=== PATIENT | female | born 1990 | race Hispanic/Latino ===

== ENCOUNTER 2018-06-06 10:08 | Emergency (ER) | payer BC ==
[~2018-06-06] VITALS: Ht 162.6 cm; Wt 79.4 kg
[2018-06-06] MEDS ORDERED: CYCLOBENZAPRINE HCL 10 MG TAB PO ONE (11:00)
[2018-06-06] MEDS ORDERED: KETOROLAC TROMETHAMINE 60 MG/2 ML VIAL IM ONE (11:00)
[2018-06-06] MEDS ORDERED: HYDROCODONE/APAP 10MG-325MG TAB PO ONE (11:00)
[2018-06-06 11:31] LABS: PREGNANCY TEST, URINE NEGATIVE (NEGATIVE)
[2018-06-06 11:33] LABS: CLARITY,URINE CLEAR (CLEAR); COLOR,URINE YELLOW (YELLOW); LEUKOCYTE ESTERASE ,URINE NEGATIVE (NEGATIVE); NITRITE,URINE NEGATIVE (NEGATIVE); PROTEIN,URINE DIPSTICK NEGATIVE (NEGATIVE)
[2018-06-06 11:34] LABS: BILIRUBIN,URINE NEGATIVE (NEGATIVE); KETONES,URINE NEGATIVE (NEGATIVE); URINE UROBILINOGEN 0.2 mg/dL (0.2 - 1)
[2018-06-06 11:57] LABS: EPITHELIAL CELLS,URINE RARE /LPF
--- NOTE | 2018-06-06 12:40 | Diagnostic Imaging Report ---
Exam: Lumbar spine AP lateral oblique History: Back pain Comparison: None. Findings: No fracture or malalignment. Disc spaces preserved. No abnormal soft tissue calcification or soft tissue defect. Impression: No acute osseous abnormality Signed by: Dr. Gilmer Gallegos M.D. on 06/06/2018 12:34 PM
[2018-06-06 12:47] VITALS: BP 134/84
== END 2018-06-06 12:54 | disposition home or self-care (01) ==
LOC: ER 10:08
DX: M54.42 Lumbago with sciatica, left side (principal); S39.012A Strain of muscle, fascia and tendon of lower back, initial encounter
CPT/HCPCS: 72110; 81001; 81025; 99283; J1885

== ENCOUNTER 2019-03-19 17:29 | Emergency (ER) | payer BC ==
[~2019-03-19] VITALS: Ht 162.6 cm; Wt 79.4 kg
[2019-03-19] MEDS ORDERED: KETOROLAC TROMETHAMINE 30 MG/ML VIAL IV ONE (18:00)
[2019-03-19 18:15] LABS: BASOPHILS % 0.4 % (0.0-1.0); EOSINOPHILS % 0.2 % (0.0-6.0); HEMATOCRIT 38.2 % (34.2-44.1); HEMOGLOBIN 12.8 g/dL (12.0-16.0); LYMPHOCYTES # (AUTO) 1.5 (1.0-3.2); LYMPHOCYTES % 30.9 % (18.0-39.1); MEAN CORPUSCULAR HEMOGLOBIN 30.9 pg (28-32); MEAN CORPUSCULAR HGB CONC 33.5 g/dL (31-35); MEAN CORPUSCULAR VOLUME 92.3 fL (81-99); MONOCYTES # (AUTO) 0.3 (0.2-0.8); MONOCYTES % 6.6 % (4.4-11.3); NEUTROPHILS % 61.5 % (38.7-80.0); PLATELET COUNT 239 x10e3/uL (140-360); RED BLOOD COUNT 4.14 x10e6/uL (3.6-5.1); RED CELL DISTRIBUTION WIDTH 12.3 % (11.7-14.4)
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
[2019-03-19 18:33] LABS: ANION GAP 16.1 mmol/L (8-16); BLOOD UREA NITROGEN 9 mg/dL (7-26); BUN/CREATININE RATIO 10 (6-25); CALCIUM 9.9 mg/dL (8.4-10.2); CARBON DIOXIDE 21 mmol/L (22-29); CHLORIDE 109 mmol/L (98-107); CREATININE, SERUM 0.86 mg/dL (0.57-1.11); EST GLOMERULAR FILTRATION RATE > 60 ML/MIN (60-); GLUCOSE 96 mg/dL (74-118); POTASSIUM 4.1 mmol/L (3.5-5.1); SODIUM 142 mmol/L (136-145)
[2019-03-19] MEDS ORDERED: IOPAMIDOL 370 MG/ML 200 ML INFUS..BTL INJ ONE (19:36)
[2019-03-19] MEDS ORDERED: SODIUM CHLORIDE 0.9% 50ML 50 ML ONE (19:36)
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
[2019-03-19 21:18] VITALS: BP 140/93
== END 2019-03-19 21:20 | disposition home or self-care (01) ==
LOC: ER 17:29
DX: S30.1XXA Contusion of abdominal wall, initial encounter (principal); M54.5 Low back pain; S39.012A Strain of muscle, fascia and tendon of lower back, initial encounter; V43.52XA Car driver injured in collision with other type car in traffic accident, initial encounter; Y92.488 Other paved roadways as the place of occurrence of the external cause
CPT/HCPCS: 36415; 74177; 80048; 81025; 84702; 85025; 87086; 99284; Q9967

== ENCOUNTER 2019-11-20 17:56 | Emergency (ER) | payer BC ==
[~2019-11-20] VITALS: Ht 162.6 cm; Wt 79.8 kg
[2019-11-20] MEDS ORDERED: ONDANSETRON HCL INJ 2MG/ML 2ML 2 MG/ML VIAL IV STA (18:37)
[2019-11-20] MEDS ORDERED: SODIUM CHLORIDE 0.9% 1000ML 1,000 ML ONE (18:37)
[2019-11-20] MEDS ORDERED: ONDANSETRON HCL INJ 2MG/ML 2ML 2 MG/ML VIAL ONE (18:37)
[2019-11-20] MEDS ORDERED: SODIUM CHLORIDE 0.9% 1000ML 1,000 ML IV ONE (18:45)
== END 2019-11-20 19:35 | disposition home or self-care (01) ==
LOC: ER 17:56 → FSED 19:35
DX: R10.13 Epigastric pain (principal); R11.2 Nausea with vomiting, unspecified; K52.29 Other allergic and dietetic gastroenteritis and colitis
CPT/HCPCS: 80048; 80076; 81003; 81025; 85025; 96374; 99283; J2405; J7030

== ENCOUNTER → 2020-09-09 | Outpatient (CLI) | payer OTHER ==
[~2020-09-09] MED LIST: COVID-19 VACC, MRNA(MODERNA)/PF 100 MCG/0.5 ML VIAL IM ONE
== END ==
LOC: VACCPMC 10:28
DX: Z23 Encounter for immunization (principal); Z20.828 Contact with and (suspected) exposure to other viral communicable diseases

== ENCOUNTER → 2020-10-17 | Outpatient (CLI) | payer OTHER | END | DRG 951 | LOC: VACCPMC 10:38 | DX: Z23 Encounter for immunization (principal); Z20.822 Contact with and (suspected) exposure to COVID-19 | CPT/HCPCS: 0012A; 91301 ==